=== PATIENT | male | born 1935 | race Caucasian/White ===

== ENCOUNTER 2018-01-19 09:56 | Outpatient (CLI) | payer MEDICARE, BC ==
--- NOTE | 2018-01-19 12:30 | RAD ---
CHEST TWO VIEWS: HISTORY: Dyspnea. COMPARISON: 01/16/2015 FINDINGS: Cardiac silhouette and pulmonary vasculature are unremarkable. Mediastinum is midline. The lungs re main hyperinflated. There is no confluent air space consolidation, pneumothorax, or pleural fluid ev ident. IMPRESSION: Chronic obstructive pulmonary disease. POS: [facility]
== END 2018-01-19 09:57 | disposition home or self-care (01) ==
LOC: RAD 09:56
PROVIDERS: ATTEND Internal Medicine Critical Care Medicine
DX: R06.00 Dyspnea, unspecified (principal); J44.9 Chronic obstructive pulmonary disease, unspecified
CPT/HCPCS: 71046

== ENCOUNTER 2018-12-30 13:09 | Outpatient (CLI) | payer MEDICARE, BC ==
--- NOTE | 2018-12-30 14:23 | RAD ---
TWO VIEWS OF THE CHEST: Comparison: 01-19-18 History: Dyspnea. FINDINGS: Two views of the chest show normal sized cardiomediastinal silhouette. There is no evidence of consol idation, mass, or pleural effusion. The bones are unremarkable. IMPRESSION: No evidence of acute cardiopulmonary disease. POS: [facility]
== END 2018-12-30 13:10 | disposition home or self-care (01) ==
LOC: RAD 13:09
PROVIDERS: ATTEND Internal Medicine Critical Care Medicine
DX: R06.00 Dyspnea, unspecified (principal)
CPT/HCPCS: 71046

== ENCOUNTER 2022-05-14 08:45 | Outpatient (CLI) | payer MEDICARE | END 2022-05-14 08:46 | disposition home or self-care (01) | LOC: RAD 08:45 | PROVIDERS: ATTEND Internal Medicine Critical Care Medicine | DX: R06.00 Dyspnea, unspecified (principal); J44.9 Chronic obstructive pulmonary disease, unspecified | CPT/HCPCS: 71046 ==

== ENCOUNTER 2023-08-05 10:08 | Outpatient (CLI) | payer MEDICARE | END 2023-08-05 10:09 | disposition home or self-care (01) | LOC: RAD 10:08 | PROVIDERS: ATTEND Internal Medicine Critical Care Medicine | DX: R06.00 Dyspnea, unspecified (principal); J44.9 Chronic obstructive pulmonary disease, unspecified; S22.089A Unspecified fracture of T11-T12 vertebra, initial encounter for closed fracture | CPT/HCPCS: 71046 ==